=== PATIENT | female | born 1970 | race Two or more races ===

== ENCOUNTER 2018-05-13 22:40 | Inpatient (IN) | payer OTHER ==
[~2018-05-13] VITALS: Ht 157.5 cm; Wt 52.2 kg
[2018-05-15] MEDS ORDERED: CODE1TAB37 PO (08:55)
== END 2018-05-15 10:04 | DRG 761 ==
LOC: ER 22:40 → OB/GYN 05-14 09:33
PROC: BW21ZZZ Computerized Tomography (CT Scan) of Abdomen and Pelvis (ICD-10-PCS; principal; 2018-05-14)
PROC: BU4CZZZ Ultrasonography of Uterus and Ovaries (ICD-10-PCS; 2018-05-14)
DX: N83.292 Other ovarian cyst, left side (principal)